=== PATIENT | male | born 1975 | race Caucasian/White ===

== ENCOUNTER → 2024-05-07 | Emergency (ER) | payer BC, OTHER ==
[~2024-05-07] VITALS: Ht 177.8 cm; Wt 68.0 kg
[2024-05-07 02:03] VITALS: BP 155/90; TEMP 98.1; O2SAT 96
== END ==
LOC: ER 02:05
DX: T50.7X1A Poisoning by analeptics and opioid receptor antagonists, accidental (unintentional), initial encounter (principal); Z53.21 Procedure and treatment not carried out due to patient leaving prior to being seen by health care provider